=== PATIENT | female | born 1970 | race Two or more races ===

== ENCOUNTER 2022-09-23 17:37 | Emergency (ER) | payer OTHER ==
[~2022-09-23] VITALS: Ht 154.9 cm; Wt 70.3 kg
--- NOTE | 2022-09-23 17:49 | NUR ---
TO ER 16 AWAITING MD MANZANARES
--- NOTE | 2022-09-23 18:00 | NUR ---
Patient came in to the er s/p fell off the the step stool landing on her left shoulder. On room air, breathing evenly and unlabored. Kept comfortable, will continue to monitor accordingly.
[2022-09-23] MEDS ORDERED: MORPHINE SULFATE INJ 2 MG/ML DISP.SYRIN ONE (18:32)
[2022-09-23] MEDS: MORPHINE SULFATE INJ 2 MG/ML DISP.SYRIN IM ONE (18:40)
[2022-09-23] MEDS ORDERED: IBUP-1955 PO (19:48)
[2022-09-23] MEDS ORDERED: HYDR-4209 PO (19:48)
--- NOTE | 2022-09-23 21:45 | NUR ---
Patient discharged to home in stable condition. Written and verbal after care instructions given. Patient verbalizes understanding of instruction.
--- NOTE | 2022-09-23 21:45 | NUR ---
SLING APPLIED TO LEFT SHOULDER
[2022-09-23 21:46] VITALS: BP 129/89
== END 2022-09-23 21:46 | disposition home or self-care (01) ==
LOC: ER 17:39
DX: S42.252A Displaced fracture of greater tuberosity of left humerus, initial encounter for closed fracture (principal); S42.251A Displaced fracture of greater tuberosity of right humerus, initial encounter for closed fracture; S53.492A Other sprain of left elbow, initial encounter; S53.491A Other sprain of right elbow, initial encounter; Z79.899 Other long term (current) drug therapy; W17.89XA Other fall from one level to another, initial encounter; Y93.89 Activity, other specified; Y92.89 Other specified places as the place of occurrence of the external cause; Y99.0 Civilian activity done for income or pay
CPT/HCPCS: 99284; 71045; 96372; 73080 ×2; 73060 ×2; 73030 ×2; J2270